=== PATIENT | female | born 1980 | race Caucasian/White ===

== ENCOUNTER 2018-03-26 10:55 | Inpatient (IN) | payer OTHER ==
--- NOTE | 2018-03-26 11:20 | C.PDOC ---
History Of Present Illness 37 y/o female presents to the ER complaining of cellulitis to the left breast which has been present for the past 2 months. Patient states that she has history of recurrent abscesses in the right breast since 2010. Patient reports that her PMD, advised her to visit the ER. Denies having fever and chills. Time Seen by Provider: 03/26/18 11:08 Chief Complaint (Nursing): Abnormal Skin Integrity History Per: Patient History/Exam Limitations: no limitations Onset/Duration Of Symptoms: Days Current Symptoms Are (Timing): Still Present Severity: Moderate Past Medical History Reviewed: Historical Data, Nursing Documentation, Vital Signs Vital Signs: Last Vital Signs Temp 98.1 F 03/26/18 11:04 Pulse 72 03/26/18 11:04 Resp 18 03/26/18 11:04 BP 124/86 03/26/18 11:04 Pulse Ox 98 03/26/18 11:04 - Medical History PMH: No Chronic Diseases Other Surgeries: Hx of surgeries Family History: States: No Known Family Hx - Social History Hx Alcohol Use: No Hx Substance Use: No - Immunization History Hx Tetanus Toxoid Vaccination: No Hx Influenza Vaccination: No Hx Pneumococcal Vaccination: No Review Of Systems Except As Marked, All Systems Reviewed And Found Negative. Constitutional: Negative for: Fever, Chills Skin: Positive for: Other (cellulitis of left breast) Physical Exam - Physical Exam Additional Physical Exam Comments: Constitutional: No acute distress. Head: Normocephalic. Atraumatic. Eyes: PERRL. ENT: Moist mucous membranes. Neck: Supple. Cardiovascular: Regular rate. Radial pulse 2+ bilaterally. Chest: No tenderness.Deferred Breast Exam. Respiratory: Clear to auscultation bilaterally. GI: Soft. Nontender. Nondistended. Back: No CVA tenderness. Musculoskeletal: No tenderness or swelling of extremities. Skin: No rash. Neurologic: Alert, no focal deficit. ED Course And Treatment - Laboratory Results Result Diagrams: 03/26/18 12:02 03/26/18 11:33 O2 Sat by Pulse Oximetry: 98 (RA) Pulse Ox Interpretation: Normal Medical Decision Making Medical Decision Making: Plan: --Labs Dr. Forrest accepts admission to his service, recommends. Dr. Winkler for surgical consultation. Disposition - Disposition Disposition: HOSPITALIZED Disposition Time: 12:00 Condition: FAIR - Clinical Impression Clinical Impression: Cellulitis of breast - Scribe Statement The provider has reviewed the documentation as recorded by the Radhaibe Sunni Savage Provider Attestation: All medical record entries made by the Radhaibe were at my direction and personally dictated by me. I have reviewed the chart and agree that the record accurately reflects my personal performance of the history, physical exam, medical decision making, and the department course for this patient. I have also personally directed, reviewed, and agree with the discharge instructions and d isposition.
[2018-03-26 11:58] LABS: BLOOD UREA NITROGEN 11 mg/dL (7-17); CALCIUM 8.9 mg/dl (8.6-10.4); GFR NON-AFRICAN AMERICAN > 60
[2018-03-26 12:01] LABS: ALB/GLOB RATIO 1.2 (1.0-2.1); ALBUMIN 4.4 g/dL (3.5-5.0); ALT/SGPT 22 U/L (9-52); AST/SGOT 38 U/L (14-36)
[2018-03-26 12:11] LABS: BASO % 0.2 % (0.0-2.0); EOS # 0.1 K/uL (0.0-0.7); EOS % 1.2 % (0.0-4.0); HEMOGLOBIN 12.1 g/dL (11.0-16.0); LYMPH % 33.5 % (20.0-40.0); MEAN CELL VOLUME 78.4 fL (81.0-99.0); MEAN CORPUSCULAR HEMOGLOBIN 26.8 pg (27.0-31.0); MEAN CORPUSCULAR HGB CONC 34.2 g/dL (33.0-37.0); MEAN PLATELET VOLUME 6.8 fL (7.2-11.7); MONO # 0.4 K/uL (0.0-0.8); MONO % 4.9 % (0.0-10.0); NEUT # 5.4 K/uL (1.8-7.0); NEUT % 60.2 % (50.0-75.0); RBC 4.51 Mil/uL (3.80-5.20); RED CELL DISTRIBUTION WIDTH 13.8 % (11.5-14.5); WHITE BLOOD COUNT 8.9 K/uL (4.8-10.8)
[2018-03-26 12:44] LABS: INR 1.1
--- NOTE | 2018-03-26 15:11 | CP.PCM.PN ---
Subjective - Date & Time of Evaluation Date of Evaluation: 03/26/18 Time of Evaluation: 03:00 - Subjective Subjective: Medicine progress note ( Dr. Forrest's service) CC: Left breast skin color changes Patient was seen and examined at bedside as she was preparing to head to the OR with Dr. Winkler. Patient presented to the ED with complaints left breast skin color changes that started 2 months ago with slight pain at the retroareolar area. Patient denies any skin peeling or breast discharge. She admits to family history of breast cancer; Aunt diagnosed with breast Ca at 65. Patient had a diagnostic mammogram done (03/10/18), which suggested Type III dense breast tissue is noted throughout the left breast associated skin thickening; BIRADS suspicion for malignancy. Unable to obtain detailed history as patient was heading to the OR. Patient will be seen tomorrow post biopsy for detailed history Objective - Vital Signs/Intake and Output Vital Signs (last 24 hours): Temp Pulse Resp BP Pulse Ox 97.6 F 92 H 16 147/95 H 98 03/26/18 13:13 03/26/18 13:13 03/26/18 13:13 03/26/18 13:13 03/26/18 14:37 - Labs Labs: 03/26/18 12:02 03/26/18 11:33 PT 12.0 SECONDS (9.7-12.2) 03/26/18 12:02 INR 1.1 03/26/18 12:02 APTT 29 SECONDS (21-34) 03/26/18 12:02 - Constitutional Appears: Well, No Acute Distress - Head Exam Head Exam: ATRAUMATIC, NORMAL INSPECTION - Eye Exam Eye Exam: EOMI, Normal appearance - ENT Exam ENT Exam: Mucous Membranes Moist - Respiratory Exam Respiratory Exam: Clear to Ausculation Bilateral, NORMAL BREATHING PATTERN. absent: Chest Wall Tenderness, Rhonchi, Wheezes - GI/Abdominal Exam GI & Abdominal Exam: Soft, Normal Bowel Sounds. absent: Distended, Firm, Guarding, Rigid, Tenderness - Extremities Exam Extremities Exam: Normal Inspection. absent: Calf Tenderness, Pedal Edema - Neurological Exam Neurological Exam: Alert, Awake, Oriented x3 - Psychiatric Exam Psychiatric exam: Anxious - Skin Additional comments: Left breast skin color changes at the retroareolar region with mild thickening and hard nodule at 8-9"0 clock position Assessment and Plan (1) Cellulitis of left breast Assessment & Plan: Consultation: Gen surgery, Dr. Winkler -----> Help appreciated * Management as per recommendation * OR today for breast biopst Outpatient mammogram: Type III dense breast tissue is noted throughout the left breast associated with skin thickening in the retroareolar region and a 2.3 cm left axillary lymph node.. Surgical evaluation is recommended. BIRADS 4: Suspicion for malignnacy. Surgical evaluation is recommended. Outpatient breast ultrasound: There is a focal area of architectural distortion measuring up to 2.5cm in the greatest diameter in the retroareolar region of the left breast at the 9'o clock position, an area of pain and elevated skin temperature. Surgical evaluation is recommended. Left axillary lymph nodes are measuring up to 1.9cm diameter, Birads 4: Suspicion for malignancy, Surgical evaluation is recommended F/U breast biopsy All plans and management discussed with Dr. Forrest Status: Acute
[2018-03-26] MEDS ORDERED: Midazolam 2 MG/2 ML VIAL ONE (15:35)
[2018-03-26] MEDS ORDERED: Propofol 10 mg/ml Inj (20 ML) ONE (15:35)
[2018-03-26] MEDS ORDERED: ceFAZolin IV 1 gm in Dextrose 1 GM/50 ML BAG IVPB ONE (15:52)
[2018-03-26] MEDS ORDERED: Bupivacaine 0.25% 20 ML INJ IJ ONE (15:52)
[2018-03-26] MEDS ORDERED: HYDROmorphone 0.5 mg/0.5 ml ISec IVP PRN (16:32)
[2018-03-27 00:24] VITALS: RESP 20; O2SAT 97
--- NOTE | 2018-03-27 06:18 | OP ---
PROCEDURE DATE: 03/26/2018 PREOPERATIVE DIAGNOSIS: Indurated and inflammatory left breast mass, breast imaging reporting and data system IV, suspicious for cancer. POSTOPERATIVE DIAGNOSIS: Indurated and inflammatory left breast mass, breast imaging reporting and data system IV, suspicious for cancer. PROCEDURE PERFORMED: Wide deep excision (quadrantectomy and partial mastectomy) of left breast with repair of thoracic blood vessel and advancement flap closure (32 sq cm). SURGEON: Johny Winkler MD ANESTHESIA: General. BLOOD LOSS: 40 mL. POSTOPERATIVE CONDITION: Stable. INDICATIONS FOR SURGERY: This is a 37-year-old female, presents with a suspicious inflammatory mass of the left breast. Both the mammogram and ultrasound were positive for architectural changes consistent with a breast cancer; however, there was no mass seen. Because of the vagueness of the cancer, a wide resection was planned for both therapeutic and diagnostic reasons. GROSS FINDINGS: The whole medial quadrant of the left breast was involved and an excision measuring 10 x 7 cm was performed. This was done down to the chest wall. Frozen section was sent and significant only for mastitis. No adenocarcinoma or any type of cancer was found. DESCRIPTION OF PROCEDURE: The patient was taken to the operating room. General anesthesia was administered. The left breast and chest wall were prepped and draped. A generous elliptical incision was made in the upper outer quadrant to perform the quadrantectomy and partial mastectomy. The flaps were raised and the resection was carried down to the chest wall. Bleeding was controlled using the Bovie. A larger chest wall vessel was encountered, noted to be bleeding, was mobilized and repaired with Prolene. The wound was irrigated with copious amounts of saline solution. There was a large tissue defect left and for this reason, full-thickness flaps were raised. Counter incisions were made and a 32 sq cm advancement flap closure was performed with multiple layers of Vicryl, subcuticular Vicryl and skin clips. The patient tolerated the procedure well, was returned to the recovery room in stable condition. Johny Winkler MD
[2018-03-27 07:15] LABS: BASO % 0.6 % (0.0-2.0); EOS # 0.2 K/uL (0.0-0.7); EOS % 2.5 % (0.0-4.0); HEMOGLOBIN 11.9 g/dL (11.0-16.0); LYMPH % 33.9 % (20.0-40.0); MEAN CELL VOLUME 78.7 fL (81.0-99.0); MEAN CORPUSCULAR HGB CONC 34.3 g/dL (33.0-37.0); MONO # 0.5 K/uL (0.0-0.8); MONO % 5.9 % (0.0-10.0); NEUT # 5.1 K/uL (1.8-7.0); NEUT % 57.1 % (50.0-75.0); RBC 4.4 Mil/uL (3.80-5.20); RED CELL DISTRIBUTION WIDTH 13.8 % (11.5-14.5); WHITE BLOOD COUNT 8.9 K/uL (4.8-10.8)
[2018-03-27 07:37] VITALS: BP 117/79; PULSE 72; TEMP 97.7
[2018-03-27 07:51] LABS: ALB/GLOB RATIO 1.2 (1.0-2.1); ALBUMIN 3.7 g/dL (3.5-5.0); ALT/SGPT 25 U/L (9-52); AST/SGOT 23 U/L (14-36); BLOOD UREA NITROGEN 10 mg/dL (7-17); CALCIUM 8.4 mg/dl (8.6-10.4); GFR NON-AFRICAN AMERICAN > 60
[2018-03-27] MEDS ORDERED: Midazolam 2 MG/2 ML VIAL ONE (12:58)
[2018-03-27] MEDS ORDERED: Propofol 10 mg/ml Inj (20 ML) ONE (12:59)
--- NOTE | 2018-03-27 13:11 | CP.PCM.PN ---
Subjective - Date & Time of Evaluation Date of Evaluation: 03/27/18 Time of Evaluation: 08:00 - Subjective Subjective: Medicine Progress Note for Dr. Forrest's Service: Patient was seen and examined at bedside in the AM. Patient states she feels well and denies pain in her breast. Patient states she is passing flatus. Patient denies chest pain, shortness of breath, nausea, vomiting, diarrhea, constipation, fever or chills. Objective - Vital Signs/Intake and Output Vital Signs (last 24 hours): Temp Pulse Resp BP Pulse Ox 97.7 F 72 20 117/79 97 03/27/18 07:36 03/27/18 07:36 03/27/18 07:36 03/27/18 07:36 03/27/18 07:36 Intake and Output: 03/27/18 03/27/18 06:59 18:59 Intake Total 290 Balance 290 - Labs Labs: 03/27/18 07:03 03/27/18 07:03 PT 12.0 SECONDS (9.7-12.2) 03/26/18 12:02 INR 1.1 03/26/18 12:02 APTT 29 SECONDS (21-34) 03/26/18 12:02 - Constitutional Appears: No Acute Distress - Head Exam Head Exam: ATRAUMATIC, NORMAL INSPECTION - Eye Exam Eye Exam: EOMI, Normal appearance - ENT Exam ENT Exam: Mucous Membranes Moist - Respiratory Exam Respiratory Exam: Clear to Ausculation Bilateral, NORMAL BREATHING PATTERN - Cardiovascular Exam Cardiovascular Exam: REGULAR RHYTHM, +S1, +S2 - GI/Abdominal Exam GI & Abdominal Exam: Soft, Normal Bowel Sounds. absent: Tenderness - Extremities Exam Extremities Exam: Normal Inspection - Neurological Exam Neurological Exam: Alert, Awake, Oriented x3 - Psychiatric Exam Psychiatric exam: Normal Affect - Skin Skin Exam: Normal Color Additional comments: left breast - dressing c/d/i Assessment and Plan - Assessment and Plan (Free Text) Assessment: Mastitis of left breast Gen surgery, Dr. Winkler -----> Help appreciated * Management as per recommendation * s/p (03/26/18) wide deep excision of left breast * Frozen section showed mastitis Outpatient mammogram: Type III dense breast tissue is noted throughout the left breast associated with skin thickening in the retroareolar region and a 2.3 cm left axillary lymph node.. Surgical evaluation is recommended. BIRADS 4: Suspicion for malignnacy. Surgical evaluation is recommended. Outpatient breast ultrasound: There is a focal area of architectural distortion measuring up to 2.5cm in the greatest diameter in the retroareolar region of the left breast at the 9'o clock position, an area of pain and elevated skin temperature. Surgical evaluation is recommended. Left axillary lymph nodes are measuring up to 1.9cm diameter, Birads 4: Suspicion for malignancy, Surgical evaluation is recommended Disposition: Patient discharged home. Keflex 500mg one table twice a day for 5 days. Patient to follow up with Dr. Winkler. All plans and management discussed with Dr. Forrest
--- NOTE | 2018-03-28 06:06 | HP ---
HISTORY OF PRESENT ILLNESS: The patient was admitted to the hospital with a chief complaint of breast mass. The patient underwent surgery. PHYSICAL EXAMINATION: GENERAL: The patient is awake, alert, and oriented. VITAL SIGNS: Temperature 98, pulse 90. HEENT: Within normal limits. NECK: Supple. CHEST: Symmetrical. HEART: Regular. ABDOMEN: Soft. EXTREMITIES: No edema. ASSESSMENT AND PLAN: The patient suffers from breast mass. The patient underwent surgery. Chandrika Forrest MD
== END 2018-03-27 12:05 | disposition home or self-care (01) | DRG 262 ==
LOC: C.ER 10:55 → C.3T 12:49
PROVIDERS: ADMIT Internal Medicine Pulmonary Disease; ATTEND Internal Medicine Pulmonary Disease
PROC: 0HBU0ZZ Excision of Left Breast, Open Approach (ICD-10-PCS; principal; 2018-03-26 14:15)
DX: N60.12 Diffuse cystic mastopathy of left breast (principal); N61.1 Abscess of the breast and nipple